=== PATIENT | female | born 1985 | race Caucasian/White ===

== ENCOUNTER 2020-12-01 09:37 | Outpatient (CLI) | payer OTHER, SELFPAY ==
--- NOTE | 2020-12-01 09:44 | FL_ITS ---
WS: [id number] ESOPHAGRAM WITH FLUOROSCOPY HISTORY: [id number] COMPARISON: None available. FLUOROSCOPY TIME: 1.3 minutes. Esophagus and swallowing function: Patient swallowed the barium mixture without difficulty. There is a very tiny defect consistent with a web along the anterior cervical esophagus at the C5 level. Does not cause significant limitation of swallowing or movement of barium. Barium tablet was swallowed wit hout difficulty. Gastroesophageal reflux: None. Hiatal hernia: Small reducible. FL/FL barium swallow [id number] IMPRESSION: 1. 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 2. Very small reducible hiatal hernia.
== END 2020-12-01 09:38 | disposition home or self-care (01) ==
LOC: RADWPI 09:42
PROVIDERS: PCP Nurse Practitioner Family; Visit Provider Specialist
DX: R13.10 Dysphagia, unspecified (principal); K44.9 Diaphragmatic hernia without obstruction or gangrene
CPT/HCPCS: 74220